=== PATIENT | female | born 1965 | race Two or more races ===

== ENCOUNTER 2018-11-25 08:11 | Outpatient (CLI) | payer OTHER ==
[~2018-11-25 08:11] MED LIST: LEVO75TA7 PO; OMEG1CAP55 PO; ROSU20TA2 PO
[2018-11-25] MEDS ORDERED: BARIUM SULFATE 450 ML ORAL.SUSP ONE (08:20)
== END 2018-11-25 23:59 | disposition home or self-care (01) ==
LOC: CT 08:11
DX: K76.0 Fatty (change of) liver, not elsewhere classified (principal); R16.0 Hepatomegaly, not elsewhere classified; R19.00 Intra-abdominal and pelvic swelling, mass and lump, unspecified site; Z90.710 Acquired absence of both cervix and uterus
CPT/HCPCS: 74176; Q9951

== ENCOUNTER 2019-06-23 01:34 | Emergency (ER) | payer OTHER ==
[~2019-06-23] VITALS: Ht 162.6 cm; Wt 70.8 kg
[2019-06-23 02:12] LABS: BASOPHILS # (AUTO) 0.1 K/uL (0.0-8.0); BASOPHILS % (AUTO) 0.9 % (0.0-2.0); EOSINOPHILS # (AUTO) 0.2 K/uL (0.0-0.7); EOSINOPHILS % (AUTO) 2.7 % (0.0-7.0); HEMATOCRIT 42.2 % (31.2-41.9); HEMOGLOBIN 13.7 g/dL (10.9-14.3); LYMPHOCYTES # (AUTO) 3.2 K/uL (20.0-40.0); LYMPHOCYTES % (AUTO) 45.4 % (20.5-51.5); MEAN CORPUSCULAR HEMOGLOBIN 27.1 uug (24.7-32.8); MEAN CORPUSCULAR HGB CONC 32 g/dL (32.3-35.6); MEAN CORPUSCULAR VOLUME 83.6 fL (75.5-95.3); MONOCYTES # (AUTO) 0.5 K/uL (2.0-10.0); NEUTROPHILS # (AUTO) 3.1 K/uL (1.8-8.9); PLATELET COUNT (AUTO) 234 K/uL (179-408); RED BLOOD CELL COUNT(AUTO) 5.05 MIL/uL (3.63-4.92)
[2019-06-23] MEDS ORDERED: MORPHINE SULFATE 2 MG/1 ML DISP.SYRIN IV ONE (02:15)
[2019-06-23] MEDS ORDERED: ASPIRIN 325 MG TABLET PO ONE (02:15)
[2019-06-23] MEDS ORDERED: NITROGLYCERIN 0.4 MG/TAB BOTTLE SL ONE ×3 (02:15→03:00)
[2019-06-23 02:16] LABS: POTASSIUM 4.2 mmol/L (3.5-5.1)
[2019-06-23] MEDS ORDERED: ASPIRIN 325 MG TABLET ONE (02:16)
[2019-06-23] MEDS ORDERED: MORPHINE SULFATE 2 MG/1 ML DISP.SYRIN ONE (02:17)
--- NOTE | 2019-06-23 02:24 | NUR ---
PATIENT REFUSED [address] BATISTA MADE AWARE.
[2019-06-23 02:25] LABS: BILIRUBIN,DIRECT 0.1 mg/dL (0.0-0.2); BILIRUBIN,TOTAL 0.3 mg/dL (0.2-1.0); TOTAL PROTEIN, SERUM 7.6 g/dL (6.4-8.2)
[2019-06-23] MEDS ORDERED: IV NORMAL SALINE 250 ML IV ONE (02:45)
[2019-06-23] MEDS ORDERED: ACETAMINOPHEN ES 500 MG TABLET PO ONE (03:00)
--- NOTE | 2019-06-23 03:05 | NUR ---
DR BATISTA MADE AWARE PATIENT REFUSED NITRO CP 0/10
[2019-06-23] MEDS ORDERED: ACETAMINOPHEN ES 500 MG TABLET ONE (03:34)
--- NOTE | 2019-06-23 04:01 | NUR ---
Patient does not wish to proceed with medical care recommended by Dr. Jimenez. Patient given information related to possible complications, up to and including , which could occur as a result of leaving the hospital at this time. Patient verbalizes understanding of risks involved due to leaving against medical advice. Patient has signed AMA form.
[2019-06-23 04:02] VITALS: BP 119/74
--- NOTE | 2019-06-23 04:06 | NUR ---
Patient discharged to home in stable conditon. Written and verbal after care instructions given. Patient verbalizes understanding of instructions. No CP. No SOB. Normal steady gait. Wll follow up with PMD.
== END 2019-06-23 04:10 | disposition left against medical advice (07) ==
LOC: ER 01:38
DX: R07.9 Chest pain, unspecified (principal); E78.5 Hyperlipidemia, unspecified; E11.9 Type 2 diabetes mellitus without complications; Z87.891 Personal history of nicotine dependence; Z90.710 Acquired absence of both cervix and uterus; Z79.899 Other long term (current) drug therapy
CPT/HCPCS: 36415; 71045; 80048; 80076; 84484; 85025; 85379; 93005 ×2; 96374; 99284; J2270; 70030-TC; A4663; A9150; J7050